=== PATIENT | female | born 1980 | race Two or more races ===

== ENCOUNTER 2019-02-18 18:54 | Outpatient (CLI) | payer OTHER ==
[2019-02-18] MEDS ORDERED: PRENATAL FORMU1 EAC1 PO (20:13)
[2019-02-18] MEDS ORDERED: SYNTHROID88 MCG PO (20:14)
[2019-02-18] MEDS ORDERED: LABETALOL HCL200 MG PO (20:14)
== END 2019-02-19 09:24 | disposition home or self-care (01) ==
LOC: OBS/DEL 18:54
DX: O26.893 Other specified pregnancy related conditions, third trimester (principal); R10.2 Pelvic and perineal pain; Z34.03 Encounter for supervision of normal first pregnancy, third trimester

== ENCOUNTER 2019-05-07 13:56 | Outpatient (CLI) | payer OTHER ==
[~2019-05-07 13:56] MED LIST: LABETALOL HCL200 MG PO; PRENATAL FORMU1 EAC1 PO; SYNTHROID88 MCG PO
== END 2019-05-07 14:58 | disposition home or self-care (01) ==
LOC: NST 13:56
DX: Z34.83 Encounter for supervision of other normal pregnancy, third trimester (principal)

== ENCOUNTER 2019-05-21 14:26 | Outpatient (CLI) | payer OTHER | END 2019-05-21 15:25 | disposition home or self-care (01) | LOC: NST 14:26 | DX: Z34.83 Encounter for supervision of other normal pregnancy, third trimester (principal) ==

== ENCOUNTER 2019-06-04 13:02 | Outpatient (CLI) | payer OTHER | END 2019-06-04 13:56 | disposition home or self-care (01) | LOC: NST 13:02 | DX: Z34.83 Encounter for supervision of other normal pregnancy, third trimester (principal); Z3A.35 35 weeks gestation of pregnancy ==

== ENCOUNTER 2019-06-04 15:00 | Inpatient (IN) | payer OTHER ==
[~2019-06-04] VITALS: Ht 172.7 cm; Wt 3.6 kg
== END 2019-06-28 14:29 | disposition home or self-care (01) | DRG 788 ==
LOC: O/R 15:00 → LDR 06-24 19:53 → O/R 06-25 18:14 → SURG-SUITE 06-25 19:31 → O/R 06-29 15:00
PROVIDERS: ADMIT Obstetrics & Gynecology
PROC: 3E0P7VZ Introduction of Hormone into Female Reproductive, Via Natural or Artificial Opening (ICD-10-PCS; 2019-06-24)
PROC: 3E033VJ Introduction of Other Hormone into Peripheral Vein, Percutaneous Approach (ICD-10-PCS; 2019-06-24)
PROC: 4A1HXCZ Monitoring of Products of Conception, Cardiac Rate, External Approach (ICD-10-PCS; 2019-06-24)
PROC: 10D00Z1 Extraction of Products of Conception, Low, Open Approach (ICD-10-PCS; principal; 2019-06-25 17:00)
DX: O82 Encounter for cesarean delivery without indication (principal); O61.0 Failed medical induction of labor; Z3A.39 39 weeks gestation of pregnancy; Z37.0 Single live birth

== ENCOUNTER 2019-06-17 14:24 | Outpatient (CLI) | payer OTHER | END 2019-06-17 15:29 | disposition home or self-care (01) | LOC: NST 14:24 | DX: Z34.83 Encounter for supervision of other normal pregnancy, third trimester (principal) ==

== ENCOUNTER 2019-06-24 13:47 | Outpatient (CLI) | payer OTHER | END 2019-06-24 15:11 | disposition home or self-care (01) | LOC: NST 13:47 | DX: Z34.83 Encounter for supervision of other normal pregnancy, third trimester (principal) ==

== ENCOUNTER 2021-06-01 10:55 | Emergency (ER) | payer OTHER ==
[~2021-06-01] VITALS: Ht 172.7 cm; Wt 95.3 kg
== END 2021-06-01 16:29 | disposition home or self-care (01) ==
LOC: ER 10:55
DX: K52.89 Other specified noninfective gastroenteritis and colitis (principal)